=== PATIENT | male | born 1985 | race American Indian/Alaskan Native ===

== ENCOUNTER 2018-10-18 08:13 | Emergency (ER) | payer SELFPAY ==
[2018-10-18 08:13] VITALS: BMI 25.2
[2018-10-18 08:25] VITALS: RESP 18; O2SAT 97
[2018-10-18] MEDS ORDERED: Lidocaine 1% 5ml Abboject IJ STA (08:43)
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
[2018-10-18 11:22] VITALS: BP 138/78; PULSE 74; TEMP 98
== END 2018-10-18 11:10 | disposition home or self-care (01) ==
LOC: ED 08:13
DX: S01.511A Laceration without foreign body of lip, initial encounter (principal); Y04.1XXA Assault by human bite, initial encounter; Y92.89 Other specified places as the place of occurrence of the external cause

== ENCOUNTER 2018-11-04 17:46 | Emergency (ER) | payer SELFPAY ==
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
[2018-11-04 18:00] VITALS: BMI 25.7
[2018-11-04 18:02] VITALS: RESP 18; TEMP 98.8
[2018-11-04 19:08] VITALS: BP 132/80; PULSE 78; O2SAT 97
== END 2018-11-04 19:07 | disposition home or self-care (01) ==
LOC: ED 17:46
DX: Z48.02 Encounter for removal of sutures (principal)